=== PATIENT | female | born 1990 | race Caucasian/White ===

== ENCOUNTER 2017-07-23 21:02 | Emergency (ER) | payer OTHER, SELFPAY ==
--- OUTSIDE RECORDS SUMMARY | 2017-07-23 21:04 | XMS REPORT | Clinical Summary ---
:1990 Author Organization [facility] Address [address] [place] [address] Care Team Providers Name Role Phone Asked, No Pcp Primary Care Provider Unavailable Allergies Active Allergy Reactions Severity Noted Date Comments Penicillin 05/02/2017 Current Medications No known medications Active Problems Not on file Encounters Date Type Specialty Care Team Description 07/21/2017 Lab Lab Blake, Cerebral aneurysm LEOLA Mei Gavin W., MD 07/21/2017 Office Visit Neurosurgery Daryn Castellanos Cerebral aneurysm MD Cayt (Primary Dx) 07/21/2017 Transcribe Orders Procedural Blake, Cardiology LEOLA Mei 07/16/2017 Hospital Encounter Radiology Daryn Castellanos MD 07/16/2017 Ancillary Orders Radiology Daryn Castellanos MD 05/02/2017 Emergency Emergency Medicine Tu, Yen-Te Nonintractable headache , unspecified chronicity pattern, unspecified headache type (Primary Dx); MD Toney Non-intractable vomiting with nausea, unspecified vomiting type after 07/22/2016 Social History Tobacco Use Types Packs/Day Years Used Date Never Assessed Sex Assigned at Date Recorded Not on file Last Filed Vital Signs Vital Sign Reading Time Taken Blood Pressure 129/71 05/02/2017 12:12 PM JEWEL SAWYER Pulse 128 05/02/2017 12:12 PM JEWEL SAWYER Temperature 36.8 C (98.2 F) 05/02/2017 12:14 PM JEWEL SAWYER Respiratory Rate 18 05/02/2017 12:12 PM JEWEL SAWYER Oxygen Saturation 97% 05/02/2017 12:12 PM JEWEL SAWYER Inhaled Oxygen Concentration - - Weight - - Height - - Body Mass Index - - Plan of Treatment Health Maintenance Due Date Last Done Comments PAP SMEAR 2011 INFLUENZA VACCINE 10/15/2017 Results ECG Pre/Post Op (07/21/2017 12:20 PM) Component Value Ref Range Ventricular rate 78 Atrial rate 78 NE interval 140 QRSD interval 82 QT interval 376 QTC interval 428 P axis 1 54 QRS axis 1 55 T wave axis 37 EKG impression Normal sinus rhythm-RSR' or QR pattern in V1 suggests right ventricular conduction delay-Nonspecific T wave abnormality-Abnormal ECG-In automated comparison with ECG of 04-APR-2016 17:52,-No significant change was found- Specimen Performing Laboratory [facility] MUSE [address] [place] [id number] Estimated GFR (07/21/2017 11:52 AM)Only the most recent of2 resultswithin the time period is included. Component Value Ref Range GFR Non Af Amer >90 mL/min/1.73 m2 GFR Af Amer >90 mL/min/1.73 m2 Comment: Chronic kidney disease: <60 mL/min/1.73m2 Kidney failure: <15 mL/min/1.73m2 The estimated GFR is calculated from the IDMS-traceable Modification of Diet in Renal Disease Equation. The accuracy of the calculation is poor when the creatinine is normal. Calculated values >90 mL/min/1.73m2 are not reported. This equation has not been validated in children (<18 years), women, the elderly (>70 years), or ethnic groups other than Caucasians and Americans. Specimen Performing Laboratory Plasma specimen [facility] DEPARTMENT OF PATHOLOGY AND GENOMIC MEDICINE [address] [place] [address] hCG qualitative, urine screen (07/21/2017 11:52 AM) Component Value Ref Range hCG qualitative, urine NegativeComment: Sensitivity of HCG test: 25 mIU/mL Specimen Performing Laboratory Urine [facility] DEPARTMENT OF PATHOLOGY AND GENOMIC MEDICINE [address] [place] [address] Partial thromboplastin time, activated (07/21/2017 11:52 AM)Only the most recent of2 resultswithin the time period is included. Component Value Ref Range PTT 28.6 23.0 - 36.0 sec Comment: PTT therapeutic range for unfractionated heparin is 61.0-112.0 seconds which corresponds to Anti-Xa 0.3-0.7 U/ml. Specimen Performing Laboratory Blood [facility] DEPARTMENT OF PATHOLOGY AND [facility] MEDICINE [address] [place] [address] Prothrombin time with INR (07/21/2017 11:52 AM)Only the most recent of2 resultswithin the time period is included. Component Value Ref Range Prothrombin time 14.3 12.0 - 15.0 sec INR 1.1 Comment: The International Normalized Ratio (INR) is a therapeutic monitoring tool for patients who are stable on oral anticoagulant therapy. An INR of 2.0-3.0 is suggested for deep vein thrombosis/pulmonary embolism. Specimen Performing Laboratory Blood [facility] DEPARTMENT OF PATHOLOGY AND [address] [address] CBC with platelet and differential (07/21/2017 11:52 AM)Only the most recent of2 resultswithin the time period is included. Component Value Ref Range WBC 6.26 4.50 - 11.00 k/uL RBC 4.17 (L) 4.20 - 5.50 m/uL HGB 12.6 12.0 - 16.0 g/dL HCT 37.8 37.0 - 47.0 % MCV 90.6 82.0 - 100.0 fL MCH 30.2 27.0 - 34.0 pg MCHC 33.3 31.0 - 37.0 g/dL RDW - SD 42.2 37.0 - 55.0 fL MPV 9.9 8.8 - 13.2 fL Platelet count 279 150 - 400 k/uL Nucleated RBC 0.00 /100 WBC Neutrophils 76.2 (H) 39.0 - 69.0 % Lymphocytes 18.5 (L) 25.0 - 45.0 % Monocytes 4.0 0.0 - 10.0 % Eosinophils 0.5 0.0 - 5.0 % Basophils 0.5 0.0 - 1.0 % Immature granulocytes 0.3Comment: "Immature granulocytes" 0.0 - 1.0 % (promyelocytes, myelocytes, metamyelocytes) Specimen Performing Laboratory Blood [facility] DEPARTMENT OF PATHOLOGY AND [facility] MEDICINE [address] [place] [address] Basic metabolic panel (07/21/2017 11:52 AM) Component Value Ref Range Sodium 141 135 - 148 mEq/L Potassium 3.9 3.5 - 5.0 mEq/L Chloride 103 98 - 112 mEq/L CO2 26 24 - 31 mEq/L Anion gap 12 7 - 15 mEq/L Comment: Starting from June , anion gap calculation no longer incorporates potassium. Please note the change. BUN 9 6 - 20 mg/dL Creatinine 0.7 0.5 - 0.9 mg/dL Glucose 94 65 - 99 mg/dL Calcium 9.0 8.3 - 10.2 mg/dL Specimen Performing Laboratory Plasma specimen [facility] DEPARTMENT OF PATHOLOGY AND GENOMIC MEDICINE [address] [place] [address] Urine drugs of abuse screen (05/02/2017 1:05 PM) Component Value Ref Range Amphetamine screen, urine Negative Barbiturate screen, urine Negative Benzodiazepine screen, urine Negative Cannabinoid screen, urine Negative Cocaine screen, urine Negative Methadone metabolite (EDDP), urine Negative Opiates screen, urine Positive (A) Oxycodone screen, urine Negative Phencyclidine screen, urine Negative Tricyclic screen, urine Negative Comment: Drug screen minimum concentration of detectability [id number] ng/mL Barbiturates 200 ng/mL Kntstklgfcixsul136 ng/mL Cimagzw117 ng/mL Mvegeufek343 ng/mL Calupxp230 ng/mL Hrwlizgff879 ng/mL Phencyclidine 25 ng/mL Rtwjkwaelwkm92 ng/mL Btzjlrvnth2941 ng/mL Negative test results indicates presumptive evidence of lack of clinically significant drug concentration in this urine specimen. Positive test results are presumptive evidence of clinically significant drug concentration in this urine specimen. Testing performed for medical purposes only. Specimen Performing Laboratory Urine [facility] DEPARTMENT OF PATHOLOGY AND GENOMIC MEDICINE [address] [place] [address] Comprehensive metabolic panel (05/02/2017 1:05 PM) Component Value Ref Range Sodium 139 135 - 148 mEq/L Potassium 3.7 3.5 - 5.0 mEq/L Chloride 100 98 - 112 mEq/L CO2 25 24 - 31 mEq/L Anion gap 14 7 - 15 mEq/L Comment: Starting from June , anion gap calculation no longer incorporates potassium. Please note the change. BUN 11 6 - 20 mg/dL Creatinine 0.8 0.5 - 0.9 mg/dL Glucose 90 65 - 99 mg/dL Calcium 9.2 8.3 - 10.2 mg/dL Protein 6.9 6.3 - 8.3 g/dL Comment: 4.6-7.0 g/dL 1 week 4.4-7.6 g/dL 7 months-1year5.1-7.3 g/dL 1-2 years5.6-7.5 g/dL >3 years6.0-8.0 g/dL 18-150 6.3-8.3 g/dL Albumin 3.7 3.5 - 5.0 g/dL A/G ratio 1.2 0.7 - 3.8 Alkaline phosphatase 62 35 - 104 U/L AST 18 10 - 35 U/L ALT 15 5 - 50 U/L Total bilirubin 0.4 0.0 - 1.2 mg/dL Specimen Performing Laboratory Plasma specimen [facility] DEPARTMENT OF PATHOLOGY AND GENOMIC MEDICINE [address] [place] [address] CT Head Wo Contrast (05/02/2017 12:34 PM) Specimen Performing Laboratory [facility] [address] [place] [address] Narrative Procedure:CT HEAD WO CONTRAST REFERRING PHYSICIAN:MARITZA COLLADO HISTORY:HEADACHE COMPARISON: 03/18/2014. TECHNIQUE: Axial images were obtained of the head without intravenous contrast. All CT scan performed using radiation dose reduction techniques. Technical factors are evaluated and adjusted to ensure appropriate moderation of exposure. Automated dose management technology is applied to adjust the radiation dose to minimize expose whileachieving a diagnostic quality image. FINDINGS: Chang-white matter differentiation is maintained. The ventricular system is symmetric and midline. There is no evidence of acute hemorrhage. Nointra-axial or extra-axial lesion is seen. The visualized portion of the orbits, paranasal sinuses and mastoid air cells are unremarkable. The calvarium is intact. IMPRESSION: Unremarkable CT head exam with no CT evidence of acute intracranial abnormality or hemorrhage. [facility]-[id number] Procedure Note Interface, Radiology Results Incoming - 05/02/2017 12:44 PM JEWEL SAWYER Procedure:CT HEAD WO CONTRAST REFERRING PHYSICIAN:MARITZA COLLADO HISTORY: HEADACHE COMPARISON: 03/18/2014. TECHNIQUE: Axial images were obtained of the head without intravenous contrast. All CT scan performed using radiation dose reduction techniques. Technical factors are evaluated and adjusted to ensure appropriate moderation of exposure. Automated dose management technology is applied to adjust the radiation dose to minimize expose while achieving a diagnostic quality image. FINDINGS: Chang-white matter differentiation is maintained. The ventricular system is symmetric and midline. There is no evidence of acute hemorrhage. No intra-axial or extra-axial lesion is seen. The visualized portion of the orbits, paranasal sinuses and mastoid air cells are unremarkable. The calvarium is intact. IMPRESSION: Unremarkable CT head exam with no CT evidence of acute intracranial abnormality or hemorrhage. [facility]-[id number] CT Head External Study (01/29/2017 2:51 PM) Specimen Performing Laboratory [facility] [address] [place] [address] Narrative This exam was not acquired at a [facility] facility and has not been interpreted by a [facility] Provider.The exam was imported into our imaging system for comparisons purposes. after 07/22/2016 Insurance Payer Benefit Plan / Group Subscriber ID Type Phone Address MEDICAID MEDICAID xxxxxxxxx Medicaid [phone] [place] [id number]
[2017-07-23] MEDS ORDERED: METOCLOPRAMIDE 10 MG/2mL INJ ONE (22:46)
[2017-07-23] MEDS ORDERED: DEXAMETHASONE 10 MG/ML VIAL ONE (22:46)
[2017-07-23] MEDS ORDERED: DIPHENHYDRAMINE 50 MG/ML VIAL ONE (22:46)
[2017-07-23] MEDS ORDERED: KETOROLAC 30 MG/ML INJ ONE (22:46)
[2017-07-23] MEDS ORDERED: NA CHLORIDE 0.9% 1,000 ML ONE (22:47)
--- NOTE | 2017-07-23 23:51 | EDPHYS ---
Physician Documentation [facility] Emergency Department Name: Ruthy Santiago Age: 27 yrs Sex: Female : 1990 Arrival Date: 07/23/2017 Time: 21:06 Bed 18 Private MD: ED Physician Clark Rogers HPI: 07/23 23:06 This 27 yrs old Female presents to ER via Ambulatory with complaints of jr8 Headache, Nausea/Vomiting. 23:06 The patient complains of pain to the forehead and left scientologist. The patient describes jr8 the headache as throbbing. Onset: The symptoms/episode began/occurred acutely, today. Associated signs and symptoms: Pertinent positives: nausea, Photophobia. Severity of symptoms: At its worst the pain was moderate, in the emergency department the pain is unchanged. Headache History: The patient has had previous headaches and this one is different than previous episodes, and this one is more severe than previous episodes. The symptoms are alleviated by nothing. the symptoms are aggravated by lights, movement, noise. The patient has not recently seen a physician. Patient with history of migraines. Stated that she had been having different types of headaches recently. Saw neurologist after being told she has possible mass in her brain. Having MRI/MRA done next week. Could not get this headache to go away . 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 - Social history:: Smoking status: Patient uses tobacco products, denies chronic smoking, but will smoke occasionally. ROS: 23:06 Eyes: Negative for injury, pain, redness, and discharge, ENT: Negative for injury, jr8 pain, and discharge, Neck: Negative for injury, pain, and swelling, Cardiovascular: Negative for chest pain, palpitations, and edema, Respiratory: Negative for shortness of breath, cough, wheezing, and pleuritic chest pain, Abdomen/GI: Negative for abdominal pain, nausea, vomiting, diarrhea, and constipation, Back: Negative for injury and pain, MS/Extremity: Negative for injury and deformity, Skin: Negative for injury, rash, and discoloration. 23:06 Neuro: Positive for headache, Negative for altered mental status, dizziness, loss of consciousness, numbness, seizure activity, speech changes, syncope, near syncope, tingling, tinnitus, tremor, visual changes, weakness. Exam: 23:06 Head/Face: Normocephalic, atraumatic. Eyes: Pupils equal round and reactive to light, jr8 extra-ocular motions intact. Lids and lashes normal. Conjunctiva and sclera are non-icteric and not injected. Cornea within normal limits. Periorbital areas with no swelling, redness, or edema. ENT: Nares patent. No nasal discharge, no septal abnormalities noted. Tympanic membranes are normal and external auditory canals are clear. Oropharynx with no redness, swelling, or masses, exudates, or evidence of obstruction, uvula midline. Mucous membranes moist. Neck: Trachea midline, no thyromegaly or masses palpated, and no cervical lymphadenopathy. Supple, full range of motion without nuchal rigidity, or vertebral point tenderness. No Meningismus. Cardiovascular: Regular rate and rhythm with a normal S1 and S2. No gallops, murmurs, or rubs. Normal PMI, no JVD. No pulse deficits. Respiratory: Lungs have equal breath sounds bilaterally, clear to auscultation and percussion. No rales, rhonchi or wheezes noted. No increased work of breathing, no retractions or nasal flaring. Abdomen/GI: Soft, non-tender, with normal bowel sounds. No distension or tympany. No guarding or rebound. No evidence of tenderness throughout. Back: No spinal tenderness. No costovertebral tenderness. Full range of motion. Skin: Warm, dry with normal turgor. Normal color with no rashes, no lesions, and no evidence of cellulitis. MS/ Extremity: Pulses equal, no cyanosis. Neurovascular intact. Full, normal range of motion. Neuro: Awake and alert, GCS 15, oriented to person, place, time, and situation. Cranial nerves II-XII grossly intact. Motor strength 5/5 in all extremities. Sensory grossly intact. Cerebellar exam normal. Normal gait. Vital Signs: 21:26 BP 134 / 92; Pulse 90; Resp 16; Temp 98.3; Pulse Ox 100% on R/A; Weight 74.84 kg (R); ak1 Height 5 ft. 5 in. (165.10 cm) (R); Pain 10/24; 21:26 Body Mass Index 27.46 (74.84 kg, 165.10 cm) ak1 MDM: 22:27 Patient medically screened. jr8 23:48 Data reviewed: vital signs, nurses notes, radiologic studies, CT scan. ED course: jr8 Patient left department for unknown reason. PD had to be called because patient still has IV in her. . 07/23 23:08 Order name: CT Head Brain wo Cont jr8 07/23 22:35 Order name: IV; Complete Time: 22:51 jr8 Administered Medications: 22:57 Drug: TORadol 30 mg Route: IVP; Site: right forearm; ak1 22:57 Drug: NS 0.9% 1000 ml Route: IV; Rate: 1000 ml; Site: right forearm; ak1 22:58 Drug: Reglan 10 mg Route: IVP; Site: right forearm; ak1 22:58 Drug: Benadryl 25 mg Route: IVP; Site: right forearm; ak1 22:58 Drug: Decadron - Dexamethasone 10 mg Route: IVP; Site: right forearm; ak1 Disposition: 07/24 00:57 Co-signature as Attending Physician, Clark Rogers MD. rn Disposition: 07/23/17 23:49 Patient left the facility after being seen by provider. - Patient left due to (see nurse's notes). - Condition is Stable. Signatures: Dispatcher [employer] EDMS Clark Rogers MD MD rn Riggs, Erika, BLOOD AND PLASMA LABORATORY ASSISTANT BLOOD AND PLASMA LABORATORY ASSISTANT ed1 Ramirez Pepper PA PA jr8 Shanta Oakes, RN RN ak1 Corrections: (The following items were deleted from the chart) 07/23 23:51 23:49 07/23/2017 23:49 Patient left the facility after being seen by provider. Reason ed1 stated they are leaving due to (see nurse's notes). Condition is Stable. jr8
--- NOTE | 2017-07-23 23:51 | ER ---
Nurse's Notes [facility] Name: Ruthy Santiago Age: 27 yrs Sex: Female : 1990 Arrival Date: 07/23/2017 Time: 21:06 Bed 18 Private MD: Diagnosis: Presentation: 07/23 21:24 Presenting complaint: Patient states: headache, dizziness. pt with hx of brain tumor ak1 she sees Dr. Castellanos at [facility]. pt scheduled for angio this month. Transition of care: patient was not received from another setting of care. Onset of symptoms was July 23, 2017. Initial Sepsis Screen: Does the patient meet any 2 criteria? No. Patient's initial sepsis screen is negative. Does the patient have a suspected source of infection? No. Patient's initial sepsis screen is negative. Note pt c/o blurred vision to left eye. Care prior to arrival: tylenol at 1600. 21:24 Method Of Arrival: Ambulatory ak1 21:24 Acuity: FELIPE 3 ak1 Triage Assessment: 21:26 Headache History: The patient has had previous headaches and this one is similar to ak1 previous episodes, and this one is more severe than previous episodes. General: Appears in no apparent distress. Behavior is calm, cooperative. Pain: Complains of pain in headache Pain currently is 8 out of 10 on a pain scale. Pain began 2-3 days ago. Also complains of dizziness, blurred vision to left eye. EENT: No signs and/or symptoms were reported regarding the EENT system. Neuro: Level of Consciousness is awake, alert, obeys commands, Oriented to person, place, time, situation, Home Health Clinician are equal bilaterally Moves all extremities. Gait is steady, Speech is normal, Facial symmetry appears normal. Cardiovascular: No deficits noted. Respiratory: No deficits noted. GI: No signs and/or symptoms were reported involving the gastrointestinal system. : No signs and/or symptoms were reported regarding the genitourinary system. Derm: No signs and/or symptoms reported regarding the dermatologic system. Musculoskeletal: No signs and/or symptoms reported regarding the musculoskeletal system. 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 - Social history:: Smoking status: Patient uses tobacco products, denies chronic smoking, but will smoke occasionally. Screenin:34 Abuse screen: Denies threats or abuse. Denies injuries from another. Nutritional ak screening: No deficits noted. Tuberculosis screening: No symptoms or risk factors identified. Fall Risk None identified. Assessment: 23:00 Reassessment: Patient appears in no apparent distress at this time. No changes from ak1 previously documented assessment. Patient is alert, oriented x 3, equal unlabored respirations, skin warm/dry/pink. see triage assessment. General: Appears in no apparent distress. 23:48 Reassessment: Pt noted walking out of ER. Attempted to call pt to come back. Pt did not ed1 return. IV still in place. [facility] notified. Vital Signs: 21:26 BP 134 / 92; Pulse 90; Resp 16; Temp 98.3; Pulse Ox 100% on R/A; Weight 74.84 kg (R); ak1 Height 5 ft. 5 in. (165.10 cm) (R); Pain 8/10; 21:26 Body Mass Index 27.46 (74.84 kg, 165.10 cm) ak1 ED Course: 21:06 Patient arrived in ED. al2 21:25 Triage completed. ak1 21:26 Arm band placed on Patient placed in waiting room, Patient notified of wait time. ak1 22:23 Britany Camejo LVN is Primary Nurse. ed1 22:27 Ramirez Pepper PA is PHCP. jr8 22:27 Clark Rogers MD is Attending Physician. jr8 22:39 Missed attempt(s): 22 gauge in right antecubital area. ed1 22:45 Missed attempt(s): 22 gauge in left forearm. Bleeding controlled, band aid applied, aa1 catheter tip intact. 22:51 Inserted saline lock: 22 gauge in right forearm, using aseptic technique. aa1 23:35 Patient has correct armband on for positive identification. Bed in low position. Call ak1 light in reach. 23:42 CT Head Brain wo Cont In Process Unspecified. EDMS 23:48 No provider procedures requiring assistance completed. Pt left facility with IV intact. ed1 Administered Medications: 22:57 Drug: TORadol 30 mg Route: IVP; Site: right forearm; ak1 22:57 Drug: NS 0.9% 1000 ml Route: IV; Rate: 1000 ml; Site: right forearm; ak1 22:58 Drug: Reglan 10 mg Route: IVP; Site: right forearm; ak1 22:58 Drug: Benadryl 25 mg Route: IVP; Site: right forearm; ak1 22:58 Drug: Decadron - Dexamethasone 10 mg Route: IVP; Site: right forearm; ak1 Outcome: 23:50 Eloped from patient exam room, after seeing physician Time discovered patient gone: July ed1 2017 at 23:50 [place] [address] notified. IV still in place. 23:50 unknown 23:50 Discharge instructions given to not given 23:51 Patient left the ED. ed1 Signatures: Dispatcher [employer] EDMS Yoselin Nieto RN RN aa1 Britany Camejo LVN T[facility] [employer]OUT ed1 Ramirez Pepper PA PA jr8 Shanta Oakes RN RN ak1 Merari Chiang2
--- NOTE | 2017-07-24 06:53 | RAD REPORT ---
EXAM DESCRIPTION: CT - Head Brain Wo Cont - 07/23/2017 11:41 pm CLINICAL HISTORY: Headache, dizziness, blurred vision A preliminary written report was provided at the time of the study, and the report was reviewed prio r to final dictation. COMPARISON: CT head May 2014 TECHNIQUE: Axial 5 mm thick images of the head were obtained without IV contrast. All CT scans are performed using dose optimization technique as appropriate and may include automated exposure control or mA/KV adjustment according to patient size. FINDINGS: No intracranial hemorrhage, mass, edema or shift of mid-line structures. No acute infarcti on changes seen. No abnormal extra-axial fluid collections. Ventricles are normal. Mastoid air cells and visualized portions of the paranasal sinuses are clear. No acute bony findings. IMPRESSION: Negative non-contrast CT head examination. No significant change from comparison.
== END 2017-07-23 23:51 | disposition left against medical advice (07) ==
LOC: ER 21:02
DX: R51 Headache (principal); R11.0 Nausea; Z72.0 Tobacco use; Z88.0 Allergy status to penicillin; Z88.8 Allergy status to other drugs, medicaments and biological substances
CPT/HCPCS: 70450; 96374; 96375; 99283; J1100; J2765; J7030